=== PATIENT | male | born 1935 | race Two or more races ===

== ENCOUNTER 2017-06-10 11:09 | Emergency (ER) | payer OTHER, BC ==
[2017-06-10 14:10] VITALS: BP 167/68
== END 2017-06-10 14:10 | disposition home or self-care (01) ==
LOC: ED 11:09
DX: S20.212A Contusion of left front wall of thorax, initial encounter (principal); V43.92XA Unspecified car occupant injured in collision with other type car in traffic accident, initial encounter; Y93.89 Activity, other specified; Y99.8 Other external cause status; Y92.89 Other specified places as the place of occurrence of the external cause
CPT/HCPCS: J1885; Q0092